=== PATIENT | female | born 1950 | race Hispanic/Latino ===

== ENCOUNTER 2024-11-07 10:27 | Emergency (ER) | payer MEDICARE ==
[2024-11-07 10:30] VITALS: PULSE 70; RESP 20; TEMP 97.7; O2SAT 98
[2024-11-07 11:00] VITALS: BP 204/84
[2024-11-07] MEDS: HYDRALAZINE HCL 20 MG/ML VIAL IV STA (11:00)
[2024-11-07] MEDS: ASPIRIN 325 MG TAB PO ONE (11:00)
[2024-11-07] MEDS: HYDROCODONE/APAP 5MG-325MG TAB PO ONE (11:57)
[2024-11-07] MEDS ORDERED: MACROBID 100 M100 MG PO (12:04)
[2024-11-07] MEDS ORDERED: CLONIDINE HCL0.1 MG PO (12:04)
== END 2024-11-07 12:40 | disposition home or self-care (01) ==
LOC: FSED 10:32
DX: I10 Essential (primary) hypertension (principal); E11.65 Type 2 diabetes mellitus with hyperglycemia; N39.0 Urinary tract infection, site not specified; R94.31 Abnormal electrocardiogram [ECG] [EKG]
CPT/HCPCS: 70450; 71046; 80048; 80076; 81003; 84484; 85025; 93005; 99283; J0360